=== PATIENT | male | born 1950 | race Caucasian/White ===

== ENCOUNTER 2022-03-28 12:29 | Day surgery (SDC) | payer MEDICARE ==
[~2022-03-28 12:29] MED LIST: LACTATED RINGERS 1,000 ML IV SCH; LIDOCAINE 1% (10MG/ML) FOR IV START INTRADERMA PRN; ONDANSETRON 4 MG/2 ML VIAL IVP PRN
[2022-03-28 13:07] VITALS: RESP 15; TEMP 97.7
[2022-03-28] MEDS ORDERED: PROPOFOL 10 MG/ML 20 ML VIAL IV ONE (15:24)
--- NOTE | 2022-03-28 15:44 | P.PCN ---
Date of Procedure: 03/28/22 Procedure(s) Performed: BRIEF HISTORY: Patient is a 71-year-old pleasant white male scheduled for an elective colonoscopy as a part of evaluation of screening for colon cancer/positive: cologuard. PROCEDURE PERFORMED: Colonoscopy. PREOPERATIVE DIAGNOSIS: Screening for colon cancer/positive cologuard. IV sedation per Anesthesia. PROCEDURE: After informed consent was obtained, the patient, was brought into the endoscopy unit. IV sedation was administered by Anesthesia under continuous monitoring. Digital rectal examination was normal. Initially the Olympus CF-160 flexible video colonoscope was then inserted in the rectum, gradually advanced into the cecum without any difficulty. Careful examination was performed as the scope was gradually being withdrawn. Ileocecal valve and the appendiceal orifice were visualized and appeared normal. Prep was excellent. Mucosa of the cecum, ascending colon, transverse colon, descending colon, sigmoid colon, and rectum appeared normal. Retroflexion was performed in the rectum and 2 internal were seen. The patient tolerated the procedure well. IMPRESSION: Normal-appearing colon from rectum to cecum no evidence of colorectal neoplasia. Grade 2 internal hemorrhoids. RECOMMENDATIONS: Findings of this examination were discussed with the patient as well as his family..he was advised to have a repeat screening colonoscopy at age [age]
[2022-03-28 16:09] VITALS: BP 149/92; PULSE 60
== END 2022-03-28 16:19 | disposition home or self-care (01) ==
LOC: ORWHC2ENDO 12:29
PROVIDERS: ATTEND Internal Medicine Gastroenterology
DX: R19.5 Other fecal abnormalities (principal); K64.1 Second degree hemorrhoids
CPT/HCPCS: 45378; J2704

== ENCOUNTER → 2022-09-05 | Outpatient (CLI) | payer MEDICARE ==
--- NOTE | 2022-09-05 14:41 | US ---
EXAMINATION TYPE: US abdomen complete DATE OF EXAM: 09/05/2022 COMPARISON: NONE CLINICAL INDICATION: Male, 71 years old with history of R10.9 ABD PAIN; Abdominal pain. Hx cholecyste ctomy, kidney stones. TECHNIQUE: Multiple sonographic images of the abdomen are obtained. FINDINGS: EXAM MEASUREMENTS: Liver Length: 16.0 cm Gallbladder Wall: Obscured CBD: Obscured Spleen: 10.7 cm Right Kidney: 11.0 x 6.0 x 4.9 cm Left Kidney: 11.0 x 5.6 x 5.0 cm EMT I/99 NOTES: Limited due to gas and patient body habitus. Pancreas: Obscured Liver: Left lobe was not well seen. *Appears coarse. Gallbladder: Surgically absent. Evidence for sonographic Martinez's sign: No CBD: Obscured Spleen: Appears wnl Right Kidney: No hydronephrosis or masses seen Left Kidney: No hydronephrosis or masses seen Upper IVC: Limited visibility. Abd Aorta: Proximal segment and iliacs were obscured. Mid and distal appear wnl. IMPRESSION: No evidence for acute process.
== END | disposition home or self-care (01) ==
LOC: RADUSWWP 13:40
PROVIDERS: ATTEND Internal Medicine Gastroenterology
DX: R10.9 Unspecified abdominal pain (principal); Z90.49 Acquired absence of other specified parts of digestive tract
CPT/HCPCS: 76700

== ENCOUNTER → 2023-02-25 | Outpatient (CLI) | payer MEDICARE ==
[2023-02-25 16:13] LABS: African American GFR (CKD) >90 (>60 ml/min/1.73 sqM); Blood Urea Nitrogen 21 mg/dL (9-20); Non-African American GFR(CKD) 85 (>60 ml/min/1.73 sqM)
--- NOTE | 2023-02-26 08:47 | CT ---
EXAMINATION TYPE: CT abdomen pelvis w con DATE OF EXAM: 02/25/2023 COMPARISON: 09/05/2022 HISTORY: Upper abdominal pain and prostate pain x [address] DLP: 1523.2 mGycm Automated exposure control for dose reduction was used. CONTRAST: CT scan of the abdomen pelvis is performed with IV Contrast, patient injected with 100 mL of Isovue 3 00. FINDINGS- LUNG BASES- heart is enlarged. Lung bases clear. No pleural LIVER/GB- the medial left lobe of the liver. Postcholecystectomy changes are seen. PANCREAS- No gross abnormality is seen. SPLEEN- calcification related to the spleen ADRENALS- No gross abnormality is seen. KIDNEYS/BLADDER-mild bilateral pelvic caliectasis but no evidence of nephrolithiasis or ureteral calc ulus.. BOWEL- no evidence of bowel obstruction. Small hiatal LYMPH NODES- No greater than 1cm abdominal or pelvic lymph nodes are appreciated. OSSEOUS STRUCTURES- up postsurgical change left hip with degenerative change right hip. Multilevel d egenerative changes OTHER- prostate is enlarged measuring 6 x 5 cm hyperdensity along the posterior margin laterally may be artifactual from the streak artifact. Left correlate with urinalysis and products . Tiny anterior abdominal wall fat-containing hernia. IMPRESSION- 1. Postcholecystectomy changes with no biliary dilation. 2. Prostatomegaly measuring 6 x 5 cm. 3. Hyperdensity along the posterior wall bladder most likely is artifactual from the extreme artifact of the left hip prostheses rather than blood products, correlate with urinalysis for confirmation. 4. Mild bilateral pelvocaliectasis with no evidence of obstructing calculus. Correlate for bladder ou tlet obstruction. 5. Small hiatal hernia.
== END | disposition home or self-care (01) ==
LOC: RADCTMAIN 15:25
PROVIDERS: ATTEND Family Medicine
DX: K44.9 Diaphragmatic hernia without obstruction or gangrene (principal); N40.0 Benign prostatic hyperplasia without lower urinary tract symptoms; N32.89 Other specified disorders of bladder; Z90.89 Acquired absence of other organs
CPT/HCPCS: 82565; 84520; 74177; 36415; Q9967